=== PATIENT | female | born 1960 | race Caucasian/White ===

== ENCOUNTER → 2016-10-07 | Day surgery (SDC) | payer OTHER ==
[2016-10-07] VITALS (7 sets, daily range): BP systolic 73–117; BP diastolic 47–75; PULSE 14–75; RESP 13–18; O2SAT 97–100
[~2016-10-07] VITALS: Ht 170.2 cm; Wt 63.7 kg
[~2016-10-07] MED LIST: Atropine 0.4 mg/mL Inj IVPUSH PRN; Bupivacaine-MPF 0.25%/EPI 30 mL Inj INJ ONE; CeFAZolin Inj 2 GM in IV Premix 1 EACH IV ONE; Dexamethasone 4 mg/mL Inj INTRARTICU ONE; Dexamethasone 4 mg/mL Inj IVPUSH PRN; Dexamethasone 4 mg/mL Inj ONE; EPHEDrine Sulfate 50 mg/mL Inj IVPUSH PRN; ESTR1TAB24 PO; HYDROcodone-APAP 5-325 mg Tablet PO PRN; HYDROmorphone 1 mg/mL Inj IVPUSH PRN; IBUP200C PO; Labetalol 5 mg/mL 4 mL Inj IV PRN; Lactated Ringer's 1,000 ML IV ONE; Lactated Ringer's 1,000 ML IV SCH; Lactated Ringer's 500 ML IV PRN; MetoCLOpramide 5 mg/mL 2 mL Inj IVPUSH PRN; MetoCLOpramide 5 mg/mL 2 mL Inj ONE; Ondansetron 2 mg/mL 2 mL Inj IVPUSH PRN; Ondansetron 2 mg/mL 2 mL Inj ONE; PROG100C6 PO; Phenylephrine 10,000 mCg/mL Inj IVPUSH PRN; Propofol 10,000 mCg/mL 20 mL Inj ONE; fentaNYL-PF 50 mCg/mL 2 mL Inj IVPUSH PRN; fentaNYL-PF 50 mCg/mL 2 mL Inj ONE; hydrALAZINE 20 mg/mL Inj IVPUSH PRN
--- NOTE | 2016-10-07 07:01 | PCM.HPANE ---
Patient Data Date of Service: Oct 07, 2016 Surgeon Admitting Provider: Attending Provider:Ryder Posada MD Primary Care Physician:Lynn Zamoar MD Other Provider:Vikas Longo Anesthesia Reason for Visit Right Knee Medial Meniscal Tear Ht/WT & BMI Height (Feet): 5 Height (Inches): 7 Weight (Kilograms): 63.7 Body Mass Index 22.00 Allergies Coded Allergies: No Known Allergies (Verified Allergy, Unknown, 09/26/16) Past Anesthesia History Anesthesia History: Denies:: Abnormal Airway, Anesthesia Reactions (ponv), Difficult Intubation, Fam Anesthesia Reaction, Fam Malignant Hypertherm, Malignant Hyperthermia Diabetes History Hx Diabetes?: No MRSA MRSA: No Medications Blood Thinner: Aspirin Hypertension Medication: No Home Meds Incl Beta Bethanie: No Reported Medications Progesterone,Micronized (Progesterone)100 Mg [id number] Mg PO DAILY 10/03/16 Ibuprofen 200 Mg [id number] Mg PO Q4H PRN For Pain Ref 0 09/26/16 Estradiol 1 Mg Tablet1 Mg PO DAILY Ref 0 09/26/16 History History of ENT Problems?: No HEENT History: Denies:: Abnormal Airway Cataracts Difficult Intubation Dysphagia Glaucoma Hearing Problem Sinus Problem Denture Type: None Teeth Condition: Within Normal Limits Hx of Heart Problems?: No Cardiovascular History: Denies:: AICD Abdominal Aortic Aneurism Atrial Fibrillation Cardiac Surgery Edema Heart Murmur Hypertension Irregular Heartbeat Pacemaker Peripheral Vascular Rheumatic Fever Thrombophlebitis Hx of Respiratory Problem?: No Respiratory History: Denies:: Asthma COPD Emphysema Oxygen Administration Pneumonia Tuberculosis Use of C-PAP Machine Hx Neurologic Problems?: No Neurological History: Denies:: CVA Headaches Multiple Sclerosis Parkinson's Disease Seizures Hx of GI Problems?: No Hx of Problems?: Yes Genitourinary History: Positive for:: Kidney Stones (remote hx- stent placed) Denies:: Urinary Tract Infection Female Hx: Denies:: Currently (POST MENOPAUSE) Problems with Breasts? Skin History: Denies:: History Skin Disorders? Pressure Ulcers Hx Musculoskeletal Problems?: Yes Musculoskeletal History: Positive for:: Musculoskeletal Trauma (right knee current admission problem) Denies:: Back Injury Degenerative Joint Fibromyalgia Myasthenia Gravis Osteoarthritis Systemic Lupus Hx of Psycho/Social Problems?: No Psycho Social History: Denies:: Anxiety Hx Depression Hx Surgeries?: Yes (varicose veins, hysteroscopy, abd hernia, tonsil) Hx Any Other Health Problems?: Yes Other History: Denies:: Cancer Endocrine Disease Hospitalization Thyroid Disease History Blood Transfusions: Positive for:: Accept Blood Products? Denies:: Blood Transfusions Hx Diabetes: No Hx Alcohol Use: YesAlcoholic Drinks Per Day: one glass wine dailyHx Substance Use: No Smoking Status: Never Smoker Stop/Bang Treated for Sleep Apnea?: No Do You Have a CPAP Machine?: No S-Snoring: Do You Snore Loudly: No T-Tired: feel tired, fatigued: No O-Obsered: Observed not breath: No P-Blood Pressure: treated: No B- Body Mass Index > 35 kg/m2: No A- Age over 50: Yes N- Neck Large Circumference: No G- Gender Male: No HUMERA Total Score: 1 HUMERA Risk Assessment: Low Risk, <3 Yes Risk Assessment Category Category 1A: Patient has history of documented sleep apnea, and HAS NOT received any narcotic, sedative or anesthesia administration during this stay. Category 1B: Patient has history of documented sleep apnea, and HAS received any narcotic , sedative or anesthesia administration during this stay Category 2: Patient has SUSPECTED Obstructive Sleep Apnea, and HAS received any narcotic , sedative or anesthesia administration during this stay. Category 3: Patient has SUSPECTED Obstructive Sleep Apnea and HAS NOT received narcotic, sedative or anesthesia administration during this stay. Category 4: Outpatient in Procedural Areas with known sleep apnea or who screen positive for High Risk via the STOP/BANG questionnaire. Exam Exam Vital Signs Vital Signs Date Time Temp Pulse Resp B/P Pulse Ox O2 Delivery O2 Flow Rate FiO2 10/07/16 06:04 36.0 64 16 117/65 100 Room Air General Appearance: Alert, Oriented X3, Cooperative HEENT/AIRWAY: MP 2 Lungs: Clear to Auscultation, Normal Air Movement Heart: Regular Rate/Rhythm, Normal S1, Normal S2 Meds/Labs/Diagnostics Admission Meds Current Medications Lactated Ringer's (Lr) 1,000 ml @ 120 mls/hr Q8H20M ONCE IV Last administered on 10/07/16t 05:55; Start 10/07/16 at 05:00; Stop 10/07/16 at 13:19 Plan Impression Patient chart reviewed, patient interviewed and anesthestic plan with risks, benefits, and alternatives discussed, and informed consent obtained. NPO per Anesth. Guidelines: Yes ASA Physical Status: ASA1 Normal Healthy Anesthetic Plan: GA Bene/Risks/Altern/Consents: Yes HP Complete Prior to Induction: Yes Seven Villela MD Oct 07, 2016 06:52
--- NOTE | 2016-10-07 08:14 | PCM.ANEP1 ---
Post Anesthesia PACU Phase 1 Assessment Date of Service: Oct 07, 2016 Vital Signs Vital Signs Date Time Temp Pulse Resp B/P Pulse Ox O2 Delivery O2 Flow Rate FiO2 10/07/16 08:10 36.9 75 14 111/62 100 Simple Mask 10 10/07/16 06:04 36.0 64 16 117/65 100 Room Air Anesthetic Administered: GA Level of Alertness: Awake, talking RAE's with Equal Strength: Yes Pain: Yes Pain Scale Score: 4 Nausea or Vomiting: No CV Function & Hydration Stable: Yes Airway Device: Oxygen Delivery: Room Air Lungs: Clear to Auscultation, Normal Air Movement Dermatome Level: Full Sensation PACU Phase 2 Assessment Complications: No Follow up Care: N/A Patient Instructions Provided: N/A Seven Villela MD Oct 07, 2016 08:14
--- NOTE | 2016-10-07 21:52 | OP ---
[address] [address] OPERATIVE REPORT PATIENT: NORA FINCH : 1960 MR#: [id number] ADMIT: 10/07/2016 JOB ID: [id number] DATE OF SURGERY: PREOPERATIVE DIAGNOSIS(ES): Internal derangement, right knee. POSTOPERATIVE DIAGNOSIS(ES): Internal derangement, right knee, with medial meniscal tear and condylar lesion medial femoral condyle. PROCEDURE: Partial medial meniscectomy, right knee, with limited chondroplasty. SURGEON: Ryder Posada MD. PROCEDURE: The patient was prepped and draped in the usual sterile fashion and a two portal diagnostic arthroscopy was carried out. Mild fissuring of the patella was encountered. Normal lateral compartment was encountered. An intact ACL was noted. Mid body and posterior horn medial meniscal tear was encountered. Intact normal articular cartilage on the tibial side. On the medial side a grade 2 condylar lesion with several loose flaps of articular cartilage encountered. Following the diagnostic arthroscopy, a combination of upbiting baskets and a meniscal resector blade were utilized to perform a partial medial meniscectomy. All unstable tissue was removed. Wounds were irrigated with sterile irrigant. The grossly loose flaps of articular cartilage were removed from the femoral condyle. Knee was fully irrigated. Portals were subsequently closed after fluid was evacuated with three 4-0 nylon suture. Sterile dressing was applied. The patient was taken to the recovery room in stable condition. She tolerated the procedure well. There were no complications.
== END | disposition home or self-care (01) ==
LOC: SAS 05:40
PROVIDERS: ATTEND Orthopaedic Surgery
DX: M23.221 Derangement of posterior horn of medial meniscus due to old tear or injury, right knee (principal); M23.91 Unspecified internal derangement of right knee; M23.41 Loose body in knee, right knee; Z79.890 Hormone replacement therapy; Z79.82 Long term (current) use of aspirin; Z87.442 Personal history of urinary calculi; Z90.710 Acquired absence of both cervix and uterus; X50.0XXA Overexertion from strenuous movement or load, initial encounter; Y93.01 Activity, walking, marching and hiking; Y92.9 Unspecified place or not applicable; Y99.8 Other external cause status
CPT/HCPCS: 29881; J0690; J1100; J1885; J2250; J2405; J2765; J3010; J7120